=== PATIENT | male | born 1945 | race Caucasian/White ===

== ENCOUNTER 2017-03-19 10:40 | Day surgery (SDC) | payer MEDICARE ==
[2017-03-17 09:40] LABS: BASOPHILS % (AUTO) 0.4 % (0-1); EOSINOPHILS # (AUTO) 0.2 X10'3 (0-0.9); EOSINOPHILS % (AUTO) 1.9 % (0-6); LYMPHOCYTES # (AUTO) 1.9 X10'3 (1.1-4.8); MEAN CORPUSCULAR HEMOGLOBIN 30.3 PG (27.0-31.0); MEAN CORPUSCULAR HGB CONC 33.2 % (33.0-36.5); MEAN CORPUSCULAR VOLUME 91.3 FL (78-98); MEAN PLATELET VOLUME 7.4 FL (7.4-10.4); MONOCYTES # (AUTO) 0.9 X10'3 (0-0.9); MONOCYTES % (AUTO) 7.8 % (2-12); NEUTROPHILS # (AUTO) 8.7 X10'3 (1.8-7.7); NEUTROPHILS % (AUTO) 73.9 % (42-75); PRE OP HEMATOCRIT 42.8 % (42.0-52.0); PRE OP HEMOGLOBIN 14.2 g/dL (14.0-17.9); PRE OP PLATELET COUNT 325 X10'3 (140-440); RED BLOOD COUNT 4.69 X10'6 (4.70-6.10); RED CELL DISTRIBUTION WIDTH 11.8 % (11.5-14.5)
[2017-03-17 09:50] LABS: PRE OP PROTIME 10.1 SECONDS (9.0-12.0)
[2017-03-17 09:57] LABS: ALBUMIN 4.1 G/DL (3.4-5.0); BLOOD UREA NITROGEN 14 MG/DL (7-18); BUN/CREATININE RATIO 16.5 (5.4-32.0); CHLORIDE 106 MMOL/L (99-107); CREATININE 0.85 MG/DL (0.60-1.10); PRE OP ANION GAP 7 (8-16); PRE OP GLUCOSE 93 MG/DL (70-104); PRE OP SODIUM 142 MMOL/L (135-145); TOTAL CARBON DIOXIDE 29.4 MMOL/L (24-32); eGFR 89 ML/MIN
[2017-03-19] VITALS (12 sets, daily range): BP systolic 112–149; BP diastolic 45–96
[~2017-03-19] VITALS: Ht 170.2 cm; Wt 83.3 kg
[~2017-03-19 10:40] MED LIST: ASPI-107 PO; ATE25T PO; CAR2T PO; CLOP75TA35 PO; FISH1CAP15 PO; GARL200T PO; GLUC1CAP78 PO; LOSA25TA96 PO; MULT1TAB PO; OMEP-84 PO; POTA99TA18 PO; VITC500T PO; ZOC40T PO
[2017-03-19] MEDS ORDERED: diphenhydrAMINE 25mg capsule PO PRN (11:05)
[2017-03-19] MEDS ORDERED: LORazepam 0.5 MG tablet PO PRN (11:05)
[2017-03-19] MEDS ORDERED: normal saline 1000ml 1,000 ML IV SCH (11:05)
[2017-03-19] MEDS ORDERED: NITR0.4T SL (11:19)
[2017-03-19] MEDS ORDERED: ATOR40TA PO (11:19)
[2017-03-19] MEDS ORDERED: FLO0.4C PO (11:19)
[2017-03-19] MEDS ORDERED: LOSA100T28 PO (11:19)
[2017-03-19] MEDS ORDERED: PANT40TA4 PO (11:19)
[2017-03-19] MEDS ORDERED: ISOS30TA6 PO (11:19)
[2017-03-19] MEDS ORDERED: ACET-2006 PO (11:19)
[2017-03-19] MEDS ORDERED: LIDOcaine 1%/PF (10mg/ml) 5ml vial ONE ×2 (12:04→12:05)
[2017-03-19] MEDS ORDERED: midazolam 2 mg/2 ml injection ONE (12:04)
[2017-03-19] MEDS ORDERED: fentaNYL/PF 50MCG/1 ML 2ML syringe ONE (12:04)
[2017-03-19] MEDS ORDERED: iohexol 350MG/ML 100ml bottle IV ONE (12:05)
[2017-03-19] MEDS ORDERED: iohexol 350 MG/ML 50ML vial IV ONE (12:59)
[2017-03-19] MEDS ORDERED: nitroGLYCERIN 0.4mg SUBLingual tab SL PRN (14:00)
[2017-03-19] MEDS ORDERED: OXAZEpam 15mg capsule PO PRN (14:00)
[2017-03-19] MEDS ORDERED: ondansetron/PF 4mg/2ml inj IV PRN (14:00)
[2017-03-19] MEDS ORDERED: proCHLORperazine 10 MG/2 ml inj IV PRN (14:00)
== END 2017-03-19 17:25 | disposition home or self-care (01) ==
LOC: SSTAY O 10:40
PROVIDERS: ATTEND Internal Medicine Interventional Cardiology
DX: I25.10 Atherosclerotic heart disease of native coronary artery without angina pectoris (principal); I10 Essential (primary) hypertension; I65.23 Occlusion and stenosis of bilateral carotid arteries; G47.10 Hypersomnia, unspecified; E78.5 Hyperlipidemia, unspecified; Z79.82 Long term (current) use of aspirin; Z79.899 Other long term (current) drug therapy; Z95.1 Presence of aortocoronary bypass graft; Z95.5 Presence of coronary angioplasty implant and graft
CPT/HCPCS: 36415; 80048; 85025; 85610; 85730; 93005; 93459; 93567; 99152; A6257; C1769; J1644; J2001; J2250; J3010; J7030; Q0163; Q9967; A4620

== ENCOUNTER 2018-03-28 14:05 | Day surgery (SDC) | payer MEDICARE ==
[2018-03-25 10:52] LABS: BASOPHILS % (AUTO) 0.4 % (0-1); EOSINOPHILS # (AUTO) 0.3 X10'3 (0-0.9); EOSINOPHILS % (AUTO) 2.6 % (0-6); HEMATOCRIT 42.1 % (42.0-52.0); HEMOGLOBIN 13.7 g/dl (14.0-17.9); LYMPHOCYTES # (AUTO) 1.9 X10'3 (1.1-4.8); LYMPHOCYTES % (AUTO) 19.5 % (21-51); MEAN CORPUSCULAR HEMOGLOBIN 29.8 PG (27.0-31.0); MEAN CORPUSCULAR HGB CONC 32.5 % (33.0-36.5); MEAN CORPUSCULAR VOLUME 91.7 FL (78-98); MEAN PLATELET VOLUME 7.4 FL (7.4-10.4); MONOCYTES # (AUTO) 0.9 X10'3 (0-0.9); MONOCYTES % (AUTO) 8.9 % (2-12); NEUTROPHILS # (AUTO) 6.7 X10'3 (1.8-7.7); NEUTROPHILS % (AUTO) 68.6 % (42-75); PLATELET COUNT 353 X10'3 (140-440); RED BLOOD COUNT 4.59 X10'6 (4.70-6.10); RED CELL DISTRIBUTION WIDTH 11.9 % (11.5-14.5); WHITE BLOOD COUNT 9.8 X10'3 (4.5-11.0)
[2018-03-25 10:59] LABS: ALBUMIN 3.9 G/DL (3.4-5.0); ANION GAP 10 (8-16); BLOOD UREA NITROGEN 15 MG/DL (7-18); BUN/CREATININE RATIO 18.5 (5.4-32.0); CHLORIDE 103 MMOL/L (99-107); CREATININE 0.81 MG/DL (0.60-1.10); GLUCOSE 95 MG/DL (70-104); POTASSIUM 4.1 MMOL/L (3.5-5.1); SODIUM 143 MMOL/L (135-145); TOTAL CARBON DIOXIDE 29.9 MMOL/L (24-32); eGFR > 90 ML/MIN
[2018-03-25 11:02] LABS: PARTIAL THROMBOPLASTIN TIME 27 SECONDS (22-32)
[~2018-03-28] VITALS: Ht 170.2 cm; Wt 86.8 kg
[~2018-03-28 14:05] MED LIST changes: +ACET-2006 PO; -ATE25T PO; +ATOR40TA PO; -CAR2T PO; -CLOP75TA35 PO; -FISH1CAP15 PO; +FLO0.4C PO; -GARL200T PO; +ISOS30TA6 PO; +LOSA100T57 PO; -LOSA25TA96 PO; +NITR0.4T SL; -OMEP-84 PO; +PANT40TA4 PO; -VITC500T PO; -ZOC40T PO
[2018-03-28] MEDS ORDERED: LORazepam 0.5 MG tablet PO PRN (14:25)
[2018-03-28] MEDS ORDERED: diphenhydrAMINE 25mg capsule PO PRN (14:25)
[2018-03-28] MEDS ORDERED: normal saline 1000ml 1,000 ML IV SCH (14:25)
[2018-03-28 14:29] VITALS: BP 144/82
[2018-03-28] MEDS ORDERED: ASPI-611 PO (14:44)
[2018-03-28] MEDS ORDERED: GARL1TAB2 PO (14:52)
[2018-03-28] MEDS ORDERED: RANO500T3 PO (14:53)
[2018-03-28] MEDS ORDERED: ASCO500C15 PO (14:57)
[2018-03-28] MEDS ORDERED: heparin 1,000 UNITS/NS 500ml 500 ML ONE ×2 (16:35)
[2018-03-28] MEDS ORDERED: LIDOcaine 1% (10mg/ml)w/preservative injection 20ml MDV ONE (16:35)
[2018-03-28] MEDS ORDERED: iohexol 350MG/ML 100ml bottle IV ONE (16:35)
[2018-03-28] MEDS ORDERED: midazolam 2 mg/2 ml injection ONE (18:14)
[2018-03-28] MEDS ORDERED: fentaNYL/PF 50MCG/1 ML 2ML syringe ONE (18:14)
[2018-03-28 18:45] VITALS: BP 139/85
[2018-03-28 19:00] VITALS: BP 136/73
[2018-03-28 19:15] VITALS: BP 145/85
[2018-03-28 19:30] VITALS: BP 152/77
== END 2018-03-28 19:50 | disposition home or self-care (01) ==
LOC: SSTAY O 14:05
PROVIDERS: ATTEND Internal Medicine Interventional Cardiology
DX: I25.709 Atherosclerosis of coronary artery bypass graft(s), unspecified, with unspecified angina pectoris (principal); I10 Essential (primary) hypertension; E78.5 Hyperlipidemia, unspecified; Z87.891 Personal history of nicotine dependence; Z79.899 Other long term (current) drug therapy; Z79.82 Long term (current) use of aspirin; G47.33 Obstructive sleep apnea (adult) (pediatric); Z95.5 Presence of coronary angioplasty implant and graft; Z95.1 Presence of aortocoronary bypass graft
CPT/HCPCS: 36415; 80048; 85025; 85610; 85730; 93005; 93459; 99152; A6257; J1644; J2001; J2250; J3010; J7030; Q0163; Q9967; A4620; C1769

== ENCOUNTER 2021-01-21 12:12 | Day surgery (SDC) | payer MEDICARE ==
[2021-01-15 12:12] LABS: BASOPHILS % (AUTO) 0.3 % (0-1); EOSINOPHILS # (AUTO) 0.2 X10'3 (0-0.9); EOSINOPHILS % (AUTO) 1.4 % (0-6); HEMATOCRIT 37.7 % (42.0-52.0); HEMOGLOBIN 12.9 g/dl (14.0-17.9); LYMPHOCYTES # (AUTO) 1.7 X10'3 (1.1-4.8); LYMPHOCYTES % (AUTO) 15.3 % (21-51); MEAN CORPUSCULAR HEMOGLOBIN 31.1 PG (27.0-31.0); MEAN CORPUSCULAR HGB CONC 34.2 g/dL (33.0-36.5); MEAN CORPUSCULAR VOLUME 91.1 FL (78-98); MONOCYTES % (AUTO) 8.9 % (2-12); NEUTROPHILS # (AUTO) 8.4 X10'3 (1.8-7.7); NEUTROPHILS % (AUTO) 74.1 % (42-75); PLATELET COUNT 294 X10'3 (140-440); RED BLOOD COUNT 4.13 X10'6 (4.70-6.10); RED CELL DISTRIBUTION WIDTH 12.7 % (11.5-14.5); WHITE BLOOD COUNT 11.3 X10'3 (4.5-11.0)
[2021-01-15 12:15] LABS: ALBUMIN 3.9 G/DL (3.4-5.0); ANION GAP 8 (8-16); BLOOD UREA NITROGEN 25 MG/DL (7-18); BUN/CREATININE RATIO 30.1 (5.4-32.0); CALCIUM 8.6 MG/DL (8.5-10.1); CHLORIDE 108 MMOL/L (99-107); CREATININE 0.83 MG/DL (0.60-1.10); GLUCOSE 94 MG/DL (70-104); POTASSIUM 4.2 MMOL/L (3.5-5.1); SODIUM 141 MMOL/L (135-145); TOTAL CARBON DIOXIDE 25.1 MMOL/L (24-32); eGFR 90 ML/MIN
[2021-01-15 12:17] LABS: PARTIAL THROMBOPLASTIN TIME 26 SECONDS (22-32)
[~2021-01-21] VITALS: Ht 170.2 cm; Wt 90.4 kg
[2021-01-21] VITALS (9 sets, daily range): BP systolic 122–135; BP diastolic 65–78
[~2021-01-21 12:12] MED LIST changes: +ASCO500C18 PO; -ASPI-107 PO; +ASPI-611 PO; +GARL1TAB2 PO; -ISOS30TA6 PO; +ISOS30TA84 PO; -PANT40TA4 PO; +PANT40TA54 PO; +RANO500T3 PO
[2021-01-21] MEDS ORDERED: diphenhydrAMINE 25mg capsule PO PRN (12:40)
[2021-01-21] MEDS ORDERED: LORazepam 0.5 MG tablet PO PRN (12:40)
[2021-01-21] MEDS ORDERED: normal saline 1,000 ML IV SCH (12:40)
[2021-01-21] MEDS ORDERED: CARB-126 PO (13:17)
[2021-01-21] MEDS ORDERED: NAPR-1154 PO (13:17)
[2021-01-21] MEDS ORDERED: AMLO2.5T2 PO (13:17)
[2021-01-21] MEDS ORDERED: iohexol 350 MG/1 ML 200ml bottle ONE (14:31)
[2021-01-21] MEDS ORDERED: fentaNYL/PF 50MCG/1 ML 2ML syringe ONE (14:31)
[2021-01-21] MEDS ORDERED: midazolam 1 mg/ML 2ml injection ONE (14:31)
[2021-01-21] MEDS ORDERED: LIDOcaine 1% (10mg/ml)w/preservative injection 20ml MDV ONE (14:32)
[2021-01-21] MEDS ORDERED: proCHLORperazine 10 MG/2 ml inj IV PRN (15:40)
[2021-01-21] MEDS ORDERED: HYDROcodone/acetaminophen 10/325mg tab PO PRN (15:40)
[2021-01-21] MEDS ORDERED: HYDROcodone/acetaminophen 5mg/325mg tablet PO PRN (15:40)
[2021-01-21] MEDS ORDERED: OXAZEpam 15mg capsule PO PRN (15:40)
[2021-01-21] MEDS ORDERED: ondansetron/PF 4mg/2ml inj IV PRN (15:40)
== END 2021-01-21 18:20 | disposition home or self-care (01) ==
LOC: SSTAY O 12:12
PROVIDERS: ATTEND Internal Medicine Interventional Cardiology
DX: R94.39 Abnormal result of other cardiovascular function study (principal); I25.118 Atherosclerotic heart disease of native coronary artery with other forms of angina pectoris; I10 Essential (primary) hypertension; G47.33 Obstructive sleep apnea (adult) (pediatric); E78.5 Hyperlipidemia, unspecified; I65.23 Occlusion and stenosis of bilateral carotid arteries; Z79.01 Long term (current) use of anticoagulants; Z79.82 Long term (current) use of aspirin; Z79.899 Other long term (current) drug therapy; Z95.1 Presence of aortocoronary bypass graft; Z95.5 Presence of coronary angioplasty implant and graft; Z87.891 Personal history of nicotine dependence
CPT/HCPCS: 36415; 80048; 85025; 85610; 85730; 93005; 93459; 99152; C1769; J1644; J2001; J2250; J3010; J7030; Q0163; Q9967; A6258

== ENCOUNTER 2023-12-21 10:22 | Day surgery (SDC) | payer MEDICARE ==
[2023-12-21] VITALS (9 sets, daily range): BP systolic 124–159; BP diastolic 64–84; PULSE 64–72; RESP 16–26; TEMP 98.6; O2SAT 91–95
[~2023-12-21] VITALS: Ht 170.2 cm; Wt 88.9 kg
[~2023-12-21 10:22] MED LIST changes: +AMLO2.5T2 PO; +CARB-126 PO; -LOSA100T57 PO; +LOSA100T58 PO; +NAPR-1154 PO
[2023-12-21] MEDS ORDERED: NITR0.4T51 SL (11:34)
[2023-12-21] MEDS ORDERED: RANO10005 PO (11:34)
[2023-12-21] MEDS ORDERED: GARL10002 PO (11:34)
[2023-12-21] MEDS ORDERED: GLUC15006 PO (11:34)
[2023-12-21 11:37] LABS: BASOPHILS % (AUTO) 0.4 % (0-1); EOSINOPHILS # (AUTO) 0.1 X10'3 (0-0.9); EOSINOPHILS % (AUTO) 0.8 % (0-6); HEMOGLOBIN 13.8 g/dl (14.0-17.9); LYMPHOCYTES # (AUTO) 2.1 X10'3 (1.1-4.8); LYMPHOCYTES % (AUTO) 20.7 % (21-51); MEAN CORPUSCULAR HEMOGLOBIN 31.8 PG (27.0-31.0); MEAN CORPUSCULAR HGB CONC 33.6 g/dL (33.0-36.5); MEAN CORPUSCULAR VOLUME 94.6 FL (78-98); MEAN PLATELET VOLUME 7.4 FL (7.4-10.4); MONOCYTES # (AUTO) 1.1 X10'3 (0-0.9); MONOCYTES % (AUTO) 10.3 % (2-12); NEUTROPHILS # (AUTO) 6.9 X10'3 (1.8-7.7); NEUTROPHILS % (AUTO) 67.8 % (42-75); PLATELET COUNT 263 X10'3 (140-440); RED BLOOD COUNT 4.34 X10'6 (4.70-6.10); RED CELL DISTRIBUTION WIDTH 12.8 % (11.5-14.5); WHITE BLOOD COUNT 10.2 X10'3 (4.5-11.0)
[2023-12-21 11:41] LABS: PROTHROMBIN TIME 10.3 SECONDS (9.0-12.0)
[2023-12-21 11:46] LABS: ANION GAP 9 (8-16); BLOOD UREA NITROGEN 17 MG/DL (7-18); BUN/CREATININE RATIO 21.3 (10.0-20.0); CHLORIDE 105 MMOL/L (99-107); CHOL/HDL RATIO 2.6 (0.00-4.99); CHOLESTEROL 169 MG/DL (0-200); GLUCOSE 87 MG/DL (70-104); HDL CHOLESTEROL 66 MG/DL (35-60); LDL CHOLESTEROL 87 MG/DL (50-100); POTASSIUM 3.8 MMOL/L (3.5-5.1); SODIUM 140 MMOL/L (135-145); TOTAL CARBON DIOXIDE 26.1 MMOL/L (24-32); TRIGLYCERIDES 129 MG/DL (20-135); eCRCL 71 ML/MIN; eGFR > 90 ML/MIN
[2023-12-21] MEDS: normal saline 1,000 ML IV SCH (12:06)
[2023-12-21] MEDS: diphenhydrAMINE 25mg capsule PO PRN (12:06)
[2023-12-21] MEDS: LORazepam 0.5 MG tablet PO PRN (12:06)
[2023-12-21] MEDS ORDERED: fentaNYL/PF 50MCG/1 ML 2ML syringe ONE (13:24)
[2023-12-21] MEDS ORDERED: iohexol 350MG/ML 100ml bottle IV ONE (13:24)
[2023-12-21] MEDS ORDERED: midazolam 1 mg/ML 2ml injection ONE (13:24)
[2023-12-21] MEDS ORDERED: heparin 1,000unit/ml 10ml vial 0 ML ONE (13:24)
[2023-12-21] MEDS ORDERED: LIDOcaine 1% 30ml preserv. free vial ONE (13:24)
[2023-12-21] MEDS ORDERED: HYDROcodone/acetaminophen 5mg/325mg tablet PO PRN (15:00)
[2023-12-21] MEDS ORDERED: HYDROcodone/acetaminophen 10/325mg tab PO PRN (15:00)
== END 2023-12-21 16:25 | disposition home or self-care (01) ==
LOC: SSTAY O 10:22
PROVIDERS: ATTEND Internal Medicine Interventional Cardiology
DX: I25.10 Atherosclerotic heart disease of native coronary artery without angina pectoris (principal); I45.10 Unspecified right bundle-branch block; I10 Essential (primary) hypertension; E78.00 Pure hypercholesterolemia, unspecified; G47.33 Obstructive sleep apnea (adult) (pediatric); Z79.82 Long term (current) use of aspirin; Z79.899 Other long term (current) drug therapy; Z95.1 Presence of aortocoronary bypass graft; Z95.5 Presence of coronary angioplasty implant and graft; Z88.8 Allergy status to other drugs, medicaments and biological substances
CPT/HCPCS: 36415; 80048; 80061; 85025; 85610; 93005; 93459; 99152; A6258; C1760; C1769; C1894; J1644; J2001; J2250; J3010; J7030; Q0163; Q9967; Z7610; J2003